=== PATIENT | female | born 1970 ===

== ENCOUNTER 2017-09-11 09:56 | Emergency (ER) | payer OTHER ==
[~2017-09-11] VITALS: Ht 154.9 cm; Wt 45.4 kg
[~2017-09-11 09:56] MED LIST: DOXYCYCLINE HY100 M2 PO; DOXYCYCLINE HY100 MG PO; TYLENOL-CODEINE1 TAB PO
== END 2017-09-11 17:01 | disposition home or self-care (01) ==
LOC: ER 09:56
DX: K52.89 Other specified noninfective gastroenteritis and colitis (principal)

== ENCOUNTER 2018-02-10 18:37 | Emergency (ER) | payer OTHER ==
[~2018-02-10] VITALS: Ht 162.6 cm; Wt 45.8 kg
== END 2018-02-11 00:23 | disposition home or self-care (01) ==
LOC: ER 18:37
DX: N93.8 Other specified abnormal uterine and vaginal bleeding (principal); D64.9 Anemia, unspecified